=== PATIENT | male | born 1980 | race Caucasian/White ===

== ENCOUNTER 2016-10-06 15:36 | Emergency (ER) | payer OTHER ==
[~2016-10-06] VITALS: Ht 177.8 cm; Wt 122.5 kg
[2016-10-06 15:48] VITALS: BP 155/110
--- NOTE | 2016-10-06 16:28 | NUR ---
PT TAKEN TO BED 6
--- NOTE | 2016-10-06 16:30 | NUR ---
36/M BIB FAMILY C/O SUPRAPUBIC CATHETER DISLODGEMENT X TODAY, LAST VOID 1 HR AGO. HX URETHRAL STRICTURESPATIENT. PT DENIES N/V/D; SKIN IS PINK/WARM/DRY; AAOX4 WITH EVEN AND STEADY GAIT; LUNGS CLEAR BL; HR EVEN AND REGULAR; PT DENIES ANY FEVER, CP, SOB, OR COUGH AT THIS TIME; PATIENT STATES PAIN OF 0/10 AT THIS TIME;PATIENT POSITIONED FOR COMFORT; HOB ELEVATED; BEDRAILS UP X2; BED DOWN. ER MD MADE AWARE OF PT STATUS.
--- NOTE | 2016-10-06 17:30 | NUR ---
ER MD DR TEJADA NOTIFIED OF PT'S BP; PT DENIES MALDONADO OR DIZZINESS, WILL CONTINUE TO MONITOR.
--- NOTE | 2016-10-06 17:41 | NUR ---
SUPRAPUBIC CATHETER DISLODGED; AWAITING FOR ER MD DR. TEJADA EVALUATION; PT DENIES PAIN OR DISCOMFORT AT THIS TIME; FAMILY AT BEDSIDE. WILL CONTINUE TO MONITOR.
--- NOTE | 2016-10-06 17:49 | NUR ---
ER MD DR. TEJADA RETURNED FROM ICU; NOTIFIED OF SUPRAPUBIC CATHETER DISLODGEMENT; PHYSICIAN TO SEE PT; WILL CONTINUE TO MONITOR.
[2016-10-06] MEDS ORDERED: KETOROLAC 60 MG/2 ML VIAL IM ONE (18:50)
--- NOTE | 2016-10-06 18:50 | NUR ---
PT C/O PAIN 10/ AT THIS TIME. STACEY VELASCO EVALUATING PT AT BEDSIDE
--- NOTE | 2016-10-06 19:29 | NUR ---
Pt report given to EDISON ANG. Transfer of care at this time.
--- NOTE | 2016-10-06 19:31 | NUR ---
Dr. Adames evaluating patient at bedside.
--- NOTE | 2016-10-06 19:40 | NUR ---
BLADDER SCANNER DONE AND RESULT IS 59ML
[2016-10-06] MEDS ORDERED: NACL 0.9% 1,000 ML IV ONE (19:55)
--- NOTE | 2016-10-06 20:51 | NUR ---
PT REFUSED TO HAVE MANUEL CATHETER. ERMD NOTIFIED
[2016-10-06] MEDS ORDERED: POTASSIUM CHLORIDE 10 MEQ TABER PO ONE (21:15)
--- NOTE | 2016-10-06 21:40 | NUR ---
Patient discharged with v/s stable. Written and verbal after care instructions given and explained. Patient alert, oriented and verbalized understanding of instructions. Ambulatory with steady gait. All questions addressed prior to discharge. ID band removed. Patient advised to follow up with PMD. Rx of TRAMADOL HYDROCHLORIDE 50 MG given. Patient educated on indication of medication including possible reaction and side effects. Opportunity to ask questions provided and answered.
[2016-10-06 21:43] VITALS: BP 138/87
== END 2016-10-06 21:40 | disposition home or self-care (01) ==
LOC: MED 15:36
DX: R33.9 Retention of urine, unspecified (principal); I10 Essential (primary) hypertension; I48.91 Unspecified atrial fibrillation
CPT/HCPCS: 36415; 80053; 82140; 85025; 85610; 85730; 96360; 96372; 99284; J1885; J7030

== ENCOUNTER 2022-12-03 17:41 | Emergency (ER) | payer OTHER ==
[~2022-12-03] VITALS: Ht 172.7 cm; Wt 113.4 kg
[2022-12-03 17:57] VITALS: BP 121/81
[2022-12-03] MEDS ORDERED: LIDOCAINE 1% 500 MG/ 50 ML VIAL INJ ONE (18:25)
[2022-12-03] MEDS ORDERED: LIDOCAINE MPF 1% 5 ML ONE ×2 (18:26)
[2022-12-03] MEDS ORDERED: AMOX-999 PO (19:05)
== END 2022-12-03 20:31 | disposition home or self-care (01) ==
LOC: MED 17:41
DX: S61.512A Laceration without foreign body of left wrist, initial encounter (principal); I48.91 Unspecified atrial fibrillation; I10 Essential (primary) hypertension; Z79.2 Long term (current) use of antibiotics; E11.9 Type 2 diabetes mellitus without complications; X58.XXXA Exposure to other specified factors, initial encounter; Y92.89 Other specified places as the place of occurrence of the external cause; Y93.89 Activity, other specified; Y99.8 Other external cause status
CPT/HCPCS: 12001; 73110; 90471; 90715; 99283; J2001